=== PATIENT | female | born 1980 | race Caucasian/White ===

== ENCOUNTER → 2020-07-03 | Outpatient (CLI) | payer MEDICARE, MEDICAID ==
[~2020-07-03] MED LIST: ATEN50TA2 PO; BUSP30TA PO; DULO1CAP6 PO; GABA-843 PO; IBUP-1022 PO; LATA0.0015 OU; LORA-674 PO; METH20TA29 PO; OMEP-218 PO; POTA1TAB23 PO; SUBO8MIS PO; ZIPR80CA30 PO
== END ==
LOC: M LABSMTC 14:13
PROVIDERS: ATTEND Anesthesiology
DX: Z01.812 Encounter for preprocedural laboratory examination (principal); Z20.828 Contact with and (suspected) exposure to other viral communicable diseases

== ENCOUNTER 2020-07-08 09:32 | Day surgery (SDC) | payer MEDICARE, MEDICAID ==
[~2020-07-08] VITALS: Ht 160 cm; Wt 78.0 kg
[~2020-07-08 09:32] MED LIST changes: +HYDROmorphone HCL 2 MG/ML 1ML VIAL (J1170) As Ordered ONE; +LIDOCAINE 2% 100MG/5ML SDV (FOR ANES.) As Ordered ONE; +LR 1,000 ML IV ONE; +MIDAZOLAM INJ 2MG/2ML VIAL (J2250 PER 1MG) As Ordered ONE; +ONDANSETRON 4MG/2ML VIAL As Ordered ONE; +ROCURONIUM BROMIDE 50 MG/5 ML VIAL As Ordered ONE; +ZIPRASIDONE 80 MG CAP (GEODON) PO SCH; +ceFAZolin SOD 2 GM in IV 1 EA IV ONE; +dexameTHASONE 4 MG/ML 1ML VIAL (J1100 PER 1MG) As Ordered ONE; +fentaNYL 100 MCG/2 ML INJECTION (J3010) As Ordered ONE; +propofoL 200 MG/20 ML VIAL As Ordered ONE
[2020-07-08] MEDS ORDERED: ROCURONIUM BROMIDE 50 MG/5 ML VIAL As Ordered ONE (10:50)
[2020-07-08] MEDS ORDERED: MIDAZOLAM INJ 2MG/2ML VIAL (J2250 PER 1MG) As Ordered ONE (11:47)
[2020-07-08] MEDS ORDERED: EPINEPHrine INJ 1 MG/ML 1ML AMP As Ordered ONE (11:47)
[2020-07-08] MEDS ORDERED: ROPIvacaine 0.5% 30ML INJECTION (J2795 PER 1MG) As Ordered ONE (11:47)
[2020-07-08] MEDS ORDERED: LIDOCAINE 1% MDV 20ML VIAL As Ordered ONE (11:47)
[2020-07-08] MEDS ORDERED: fentaNYL 100 MCG/2 ML INJECTION (J3010) As Ordered ONE (11:47)
[2020-07-08] MEDS ORDERED: dexameTHASONE 4 MG/ML 1ML VIAL (J1100 PER 1MG) As Ordered ONE (11:49)
[2020-07-08] MEDS ORDERED: ROPIvacaine 0.5% 30ML INJECTION (J2795 PER 1MG) XX ONE (12:00)
[2020-07-08] MEDS ORDERED: dexameTHASONE 10MG/1ML VIAL PRES.FREE (J1100 PER 1MG) XX ONE (12:00)
[2020-07-08] MEDS ORDERED: EPINEPHrine INJ 1 MG/ML 1ML AMP XX ONE (12:00)
[2020-07-08] MEDS: MIDAZOLAM INJ 2MG/2ML VIAL (J2250 PER 1MG) IV PRN ×2 (12:04→12:07)
[2020-07-08] MEDS: fentaNYL 100 MCG/2 ML INJECTION (J3010) IV PRN ×2 (12:04→12:07)
[2020-07-08] MEDS ORDERED: SUGAMMADEX SODIUM 500 MG/5 ML VIAL (BRIDION) As Ordered ONE (13:01)
[2020-07-08] MEDS ORDERED: ACETAMINOPHEN 1000MG 100ML IV BTL (OFIRMEV) (J0131 PER 10MG) As Ordered ONE (13:01)
[2020-07-08] MEDS ORDERED: ePHEDrine SULFATE 25 MG/5 ML(5MG/ML) SYRINGE As Ordered ONE ×2 (13:10→13:47)
[2020-07-08] MEDS ORDERED: PHENYLephrine HCL 500 MCG/5 ML (100MCG/ML) SYRINGE (J2370) As Ordered ONE ×2 (13:10→13:47)
[2020-07-08] MEDS ORDERED: LIDOCAINE 1% MDV 20ML VIAL XX ONE (14:30)
[2020-07-08] MEDS ORDERED: IBUPROFEN 600MG TAB PO PRN (14:30)
[2020-07-08] MEDS ORDERED: MEPERIDINE INJ 25 MG/ML VIAL (J2175) IV PRN (14:30)
[2020-07-08] MEDS ORDERED: ACETAMINOPHEN TAB 650MG DOSE (2X325MG) PO PRN (14:30)
[2020-07-08] MEDS ORDERED: METOCLOPRAMIDE INJ 10MG/2ML VIAL (J2765 PER 1) IV PRN (14:30)
[2020-07-08] MEDS ORDERED: fentaNYL 100 MCG/2 ML INJECTION (J3010) IV PRN (14:30)
[2020-07-08] MEDS ORDERED: LR 1,000 ML IV SCH ×2 (14:30)
[2020-07-08] MEDS ORDERED: oxyCODONE 5MG TAB PO PRN (14:30)
[2020-07-08] MEDS ORDERED: PERCOCET 5MG/325MG TAB PO PRN ×2 (14:30)
[2020-07-08] MEDS ORDERED: ONDANSETRON 4MG/2ML VIAL IV PRN ×2 (14:30)
--- NOTE | 2020-07-08 15:14 | RO ---
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 POSTOPERATIVE DIAGNOSIS: Possible right 1st metatarsal osteomyelitis or chronic 1st metatarsophalangeal joint infection. PROCEDURE: Right 1st metatarsal joint and 1st metatarsal irrigation and debridement. SURGEON: Mary Phelps MD ASSIST: Wilder Bustillos PA-C ANESTHESIA: General endotracheal, popliteal nerve block. SPECIMENS: Three tissue specimens from the 1st MTP joint and three swabs after drilling the 1st metatarsal head were sent for both aerobic and anaerobic, Gram stain and culture. EBL: 10 mL. COMPLICATIONS: None. CONDITION: Stable to recovery. INDICATIONS: Kassidy Molina is a 40-year-old female who has had longstanding pain due to significant arthritis of her 1st MTP joint. She has history of gout and had been treated for that. Our plan had been for 1st MTP fusion with calcaneal bone graft. Informed consent was obtained in the office. She did understand there was a small chance that should there be evidence of infection I would have to abort the procedure. She does have history of IV drug abuse and recently had been injecting Suboxone into her bilateral upper extremities. PROCEDURE: The patient was met in the preoperative holding area where her right lower extremity was marked as correct operative site. She was taken to the operating room and placed in the supine position on the operating room table. Bony prominences were well padded. Well padded tourniquet was placed on the right upper thigh. She received antibiotics within 60 minutes prior to incision. The right lower extremity was prepped and draped in normal sterile fashion. An official time out was held where the correct patient, operative side and operative procedure were verified. An incision was made over the 1st MTP joint. There was no significant swelling, erythema or skin irritation at the time of surgery. The EHL tendon was retracted laterally. Capsule was incised. There was no abscess or abnormal fluid in the 1st MTP joint. There was, however, some thickened capsule which was debrided. There was significant osteoarthritis on both sides of the 1st MTP joint. There was very little remaining cartilage left and erosions on both sides of the joint. This was thoroughly debrided. Both bone and soft tissue were sent for culture with three different specimens for Gram stain and culture. Copious irrigation was performed. At this point there did seem to be some thickened tissue but no evidence of infection. I then started to drill the 1st metatarsal into the subchondral bone with 0.062 K-wire and it did appear that there was some milky purulent-type fluid coming out of the drill holes. This fluid was sent with culture swab on three different swabs. It did come out of multiple different drill holes and there was concern that there was perhaps a chronic osteo or indolent infection in the area. Copious irrigation was performed. I did use a new wire and drilled on phalangeal side of the joint as well. However, no significant fluid came out of the distal phalanx. The wound was copiously irrigated. Any abnormal appearing tissue was removed and thorough debridement was performed. Capsule was closed using 3-0 Monocryl. Subcutaneous tissue and skin were also closed using 3-0 Monocryl in interrupted fashion. Well padded dressing was applied followed by postop shoe. The patient was extubated and transferred to the recovery room in stable condition. PLAN: The patient will stay on IV Kefzol and be admitted to the hospital. I did abort surgery for 1st MTP arthrodesis as there was concern that there was a low grade infection and thus that prohibited me from putting any sort of hardware or bone graft into the joint. Plan would be for ID consult, IV antibiotics and once she is clear of infection or if perhaps cultures are negative could proceed with the fusion. We have consulted Dr. Phillips. The patient does have history of IV drug use and recent injection of Suboxone so she is at high risk of infection.
[2020-07-08] MEDS ORDERED: METHYLPHENIDATE 5 MG TAB PO SCH (16:00)
[2020-07-08] MEDS ORDERED: busPIRone 10 MG TAB PO SCH (21:00)
[2020-07-08] MEDS ORDERED: ceFAZolin SOD 2 GM in IV 1 EA IV SCH (21:00)
[2020-07-09] MEDS ORDERED: OMEPRAZOLE 20 MG CAP PO SCH (09:00)
[2020-07-09] MEDS ORDERED: LORATADINE 10 MG TAB PO SCH (09:00)
[2020-07-09] MEDS ORDERED: BUPRENORPHINE/NALOXONE 8-2MG SUBLINGUAL TABLET(SUBOXONE) PO SCH (09:00)
[2020-07-09] MEDS ORDERED: DULoxetine 30 MG CAP (CYMBALTA) PO SCH (09:00)
[2020-07-09] MEDS ORDERED: ASPIRIN 81 MG ENTERIC TAB PO SCH (09:00)
[2020-07-09] MEDS ORDERED: atenoloL 50 MG TAB PO SCH (09:00)
== END 2020-07-08 15:28 | disposition home or self-care (01) ==
LOC: M SDC 09:32
PROVIDERS: ATTEND Orthopaedic Surgery
DX: M19.071 Primary osteoarthritis, right ankle and foot (principal); M10.9 Gout, unspecified; Z88.5 Allergy status to narcotic agent; Z88.8 Allergy status to other drugs, medicaments and biological substances; F43.10 Post-traumatic stress disorder, unspecified; F41.9 Anxiety disorder, unspecified; K21.9 Gastro-esophageal reflux disease without esophagitis; F31.9 Bipolar disorder, unspecified; F90.9 Attention-deficit hyperactivity disorder, unspecified type; F17.210 Nicotine dependence, cigarettes, uncomplicated; Z79.899 Other long term (current) drug therapy; Z79.891 Long term (current) use of opiate analgesic
CPT/HCPCS: 11044; 87070; 87075; 87077; 87186; 87205; C1762; J0131; J0171; J0690; J1100; J1170; J2250; J2370; J2405; J2795; J3010